=== PATIENT | male | born 1980 | race Two or more races ===

== ENCOUNTER 2018-07-26 09:57 | Emergency (ER) | payer SELFPAY ==
[~2018-07-26] VITALS: Ht 165.1 cm; Wt 99.8 kg
[2018-07-26 10:15] VITALS: BP 152/92
[2018-07-26] MEDS ORDERED: predniSONE 10 MG TABLET PO ONE (10:15)
[2018-07-26] MEDS ORDERED: IPRATRPIUM/ALBUTEROL 0.5/2.5MG 3 ML NEBU. NEB ONE (10:15)
--- NOTE | 2018-07-26 10:22 | PHYS DOC ---
Adult General Chief Complaint Chief Complaint: COUGH HPI HPI 38-year-old male presents to ER with complaints of 2-3 month history of cough. Patient states in the past 2 weeks his cough has turned productive with green phlegm. Patient denies chest pain or palpitations. Patient denies shortness of air. Patient denies fever or chills, sore throat, or earache. Pt denies swelling. Pt denies being a smoker. Patient denies other family members with similar illness. He denies recent travel. Review of Systems Review of Systems Constitutional: Denies fever or chills. Denies fatigue Eyes: Denies change in visual acuity, redness, or eye pain [] HENT: Denies nasal congestion or sore throat [] Respiratory: Denies shortness of breath. Reports prod. cough Cardiovascular: Denies CP/palpitations GI: Denies abdominal pain, nausea, vomiting, bloody stools or diarrhea [] : Denies dysuria or hematuria [] Musculoskeletal: Denies joint pain. Reports sides of back hurt with coughing episodes- denies pain during exam Integument: Denies rash, swelling or skin lesions [] Neurologic: Denies headache, focal weakness or sensory changes [] All other systems were reviewed and found to be within normal limits, except as documented in this note. Current Medications Current Medications Current Medications Medications (Trade) Dose Ordered Sig/Shauna Start Time Stop Time Status Last Admin Dose Admin Albuterol/ Ipratropium (Duoneb) 3 ml 1X ONCE 07/26/18 10:15 07/26/18 10:22 DC 07/26/18 11:08 3 ML Prednisone (Prednisone) 50 mg 1X ONCE 07/26/18 10:15 07/26/18 10:22 DC 07/26/18 10:28 50 MG Allergies Allergies Allergies Coded Allergies Type Severity Reaction Last Updated Verified Penicillins Allergy Unknown 07/26/18 Yes Physical Exam Physical Exam Constitutional: Well developed, well nourished, no acute distress, non-toxic appearance. [] HENT: Normocephalic, atraumatic, bilateral ears normal, oropharynx moist- no pharyngeal swelling/erythema, no oral exudates, nose normal. [] Eyes: Pupils equal, conjunctiva normal, no discharge. [] Neck: Normal range of motion, no tenderness, supple, no stridor. Trachea midline Cardiovascular: Heart rate regular rhythm, no murmur [] Lungs & Thorax: Bilateral breath sounds clear to auscultation- expiratory wheeze RUL. Diminished air movement throughout all lung rodrigues with less air movement in bases. Resp. equal/nonlaboredd. Speaking in full sentences Skin: Warm, dry, no erythema, no rash. [] Back: No tenderness, no CVA tenderness. [] Extremities: No tenderness, no cyanosis, no clubbing, ROM intact, no edema. [] Neurologic: Alert and oriented X 3, normal motor function, normal sensory function, no focal deficits noted. [] Psychologic: Affect normal, judgement normal, mood normal. [] Current Patient Data Vital Signs Vital Signs Date Time Temp Pulse Resp B/P (MAP) Pulse Ox O2 Delivery O2 Flow Rate FiO2 07/26/18 11:09 96 Room Air 07/26/18 10:15 98.8 73 18 152/92 (112) 98.8 EKG EKG [] Radiology/Procedures Radiology/Procedures [] Course & Med Decision Making Course & Med Decision Making Pertinent Imaging studies reviewed. (See chart for details) 1115: Patient was evaluated in the ER for complaints of ongoing cough for the past 2-3 months which has worsened over the past couple of weeks. Patient was afebrile and nontoxic in appearance. Patient was treated with dose of prednisone and given a DuoNeb treatment. On reevaluation right upper lobe expiratory wheezing has subsided. Patient has increased air movement throughout all lung rodrigues. Patient continues to have intermittent nonproductive cough but does continue to deny any chest pain. Discussed chest x-ray results with patient when no acute findings. Discussed plans for home discharge with prescriptions for prednisone and albuterol inhaler. Patient encouraged to increase fluid intake. Patient states he has appointment with his primary doctor on 08/05/18 discussed if symptoms worsen or with concerns he should call and have follow-up appointment sooner. Patient's blood pressure elevated at 152/ 92 discussed recheck with his primary care physician. Education provided on signs and symptoms to return to ER for an discharge instructions were discussed. Discussed upper respiratory illness and with no acute findings on chest x-ray and patient being afebrile will hold off on antibiotic treatment. Dragon Disclaimer Dragon Disclaimer This electronic medical record was generated, in whole or in part, using a voice recognition dictation system. Departure Departure Impression: Primary Impression: Cough Disposition: HOME, SELF-CARE Condition: STABLE Referrals: NO PCP (PCP) Patient Instructions: Cough, Adult Additional Instructions: Drink plenty of fluids. Over the counter cough medications- Delsym for example as directed on container as needed. Follow-up with primary doctor if symptoms persist or with concerns. Your blood pressure was 152/92 while in the Emergency Department you should follow-up with primary doctor for recheck of your blood pressure. Scripts Albuterol Sulfate (Proair Hfa) 8.5 Gm Hfa.aer.ad 1 PUFF INH PRN Q6HRS PRN for COUGH, #1 INHALER 0 Refills Prov: AGUILAR TORRES APRN 07/26/18 Prednisone (PREDNISONE) 50 Mg Tablet 1 TAB PO DAILY, #4 TAB 0 Refills Start on 07/27/18 Prov: AGUILAR TORRES APRN 07/26/18 AGUILAR TORRES APRN Jul 26, 2018 10:22
--- NOTE | 2018-07-26 10:29 | RAD ---
PA and lateral chest. HISTORY: Cough PA and lateral views were taken of the chest. Lungs are clear. Heart is normal in size. There is no pleural effusion. IMPRESSION: 1. No acute chest disease. Electronically signed by: Renato Dorantes MD (07/26/2018 10:26 AM) [facility]
[2018-07-26] MEDS ORDERED: PRED50TA PO (11:30)
[2018-07-26] MEDS ORDERED: ALBU2.5V8 INH (11:30)
== END 2018-07-26 11:44 | disposition home or self-care (01) ==
LOC: ER 09:57
DX: R05 Cough (principal); R06.2 Wheezing; R03.0 Elevated blood-pressure reading, without diagnosis of hypertension; Z88.0 Allergy status to penicillin
CPT/HCPCS: 71046; 94640; 99283; J7512; J7620

== ENCOUNTER 2018-09-15 06:55 | Emergency (ER) | payer SELFPAY ==
[~2018-09-15] VITALS: Ht 165.1 cm; Wt 97.5 kg
[~2018-09-15 06:55] MED LIST: ALBU2.5V8 INH; PRED50TA PO
--- NOTE | 2018-09-15 07:22 | PHYS DOC ---
Past Medical History Past Medical History: No Pertinent History, GERD Past Surgical History: No Surgical History Additional Information: Denies smoking Alcohol Use: None Drug Use: None Adult General Chief Complaint Chief Complaint: Congestion HPI HPI Patient is a 38 year old male who presents with complaining of congestion. Patient states he has had nasal congestion and sinus fullness for the last 3 days with clear discharge. Patient denies fever and chills, cough and shortness of breath, earache and sore throat. She states he has had nasal congestion and sinus problems more than one month and seen by his primary care physician and this emergency room without improvement of his condition. Review of Systems Review of Systems Constitutional: Denies fever or chills [] Eyes: Denies change in visual acuity, redness, or eye pain [] HENT: Reports nasal congestion Respiratory: Denies cough or shortness of breath [] Cardiovascular: No additional information not addressed in HPI [] GI: Denies abdominal pain, nausea, vomiting, bloody stools or diarrhea [] : Denies dysuria or hematuria [] Musculoskeletal: Denies back pain or joint pain [] Integument: Denies rash or skin lesions [] Neurologic: Denies headache, focal weakness or sensory changes [] Endocrine: Denies polyuria or polydipsia [] All other systems were reviewed and found to be within normal limits, except as documented in this note. Allergies Allergies Allergies Coded Allergies Type Severity Reaction Last Updated Verified Penicillins Allergy Unknown 07/26/18 Yes Physical Exam Physical Exam Constitutional: Well developed, well nourished, mild distress, non-toxic appearance. [] HENT: Normocephalic, atraumatic, bilateral external ears normal, oropharynx moist, no oral exudates, maxillary sinus tenderness, nasal congestion and mucosal edema and erythema .] Eyes: PERRLA, EOMI, conjunctiva normal, no discharge. [] Neck: Normal range of motion, no tenderness, supple, no stridor. [] Cardiovascular:Heart rate regular rhythm, no murmur [] Lungs & Thorax: Bilateral breath sounds clear to auscultation [] Neurologic: Alert and oriented X 3, normal motor function, normal sensory function, no focal deficits noted. [] Psychologic: Affect normal, judgement normal, mood normal. [] Current Patient Data Vital Signs Vital Signs Date Time Temp Pulse Resp B/P (MAP) Pulse Ox O2 Delivery O2 Flow Rate FiO2 09/15/18 07:05 98.9 78 18 158/99 (118) 97 Room Air 98.9 EKG EKG [] Radiology/Procedures Radiology/Procedures [facility] [address] [place] [address] IMAGING REPORT Signed PATIENT: BRISEYDA PATEL ACCOUNT: [id number] : 1980 LOCATION: ER AGE: 38 SEX: M EXAM STATUS: REG ER ORD. PHYSICIAN: VELVET FRASER MD REASON: nasal congestion for 2 months with sinus fullness PROCEDURE: CT HEAD AND MAXILLOFACIAL WO EXAM: Head and maxillofacial bone CT without contrast. HISTORY: Nasal congestion. TECHNIQUE: Computed tomographic images of the head and maxillofacial bones were obtained without contrast. *One or more of the following individualized dose reduction techniques were utilized for this examination: 1. Automated exposure control. 2. Adjustment of the mA and/or kV according to patient size. 3. Use of iterative reconstruction technique. COMPARISON: None. FINDINGS: There is no hemorrhage. There is no mass effect or midline shift. There is no hydrocephalus. The garcia-white matter differentiation pattern is intact. No suspicious calvarial lesion is seen. The mastoid air cells are clear. The temporomandibular joints are intact. There is decreased right greater than left maxillary sinus size due to hypoplasia or changes due to the sequela of chronic sinusitis/silent sinus syndrome. There is mild bilateral maxillary, mild sphenoid, and moderate to severe bilateral ethmoid sinus mucosal thickening. There is obstruction of the bilateral ostiomeatal units. There is mild rightward nasal septal deviation. The orbits are unremarkable. There is no significant stenosis involving the visualized proximal cervical spine. IMPRESSION: 1. No acute intracranial finding. 2. Paranasal sinus disease with obstruction of the ostiomeatal units. The maxillary sinuses are small in size, likely due to hypoplasia or the sequela of chronic sinusitis/silent sinus syndrome. 2. Nasal septal deviation. Electronically signed by: Izabella Lozano MD (09/15/2018 7:52 AM) [place] [id number] DICTATED and SIGNED BY: IZABELLA LOZANO MD DATE: 09/15/18 0752 Course & Med Decision Making Course & Med Decision Making Pertinent Imaging studies reviewed. (See chart for details) Evaluation of patient in ER showed 38-year-old male patient with complaining of nasal congestion for 2 days and history of the same problem previously for the last couple months. CT showed maxillary anxieties. Plan discharge patient home with 2 weeks of antibiotic and antiemetic medication and instruction to follow up with his primary care physician. Patient has Afrin spray and instructed to use as needed. Dragon Disclaimer Dragon Disclaimer This electronic medical record was generated, in whole or in part, using a voice recognition dictation system. Departure Departure Impression: Primary Impression: Acute recurrent maxillary sinusitis Disposition: HOME, SELF-CARE (at 0804) Condition: STABLE Referrals: NO PCP (PCP) Patient Instructions: Sinusitis Additional Instructions: Drink plenty of liquids Follow-up with your primary care physician in 3-5 days Return to ER if not getting better Scripts Prednisone (PREDNISONE) 50 Mg Tablet 1 TAB PO DAILY, #7 TAB Prov: VELVET FRASER MD 09/15/18 Naproxen (NAPROSYN) 500 Mg Tablet 1 TAB PO BID for pain, #30 TAB Prov: VELVET FRASER MD 09/15/18 Cephalexin (KEFLEX) 500 Mg Capsule 2 CAP PO Q12HR, #56 CAP Prov: VELVET FRASER MD 09/15/18 VELVET FRASER MD Sep 15, 2018 07:22
--- NOTE | 2018-09-15 07:55 | RAD ---
EXAM: Head and maxillofacial bone CT without contrast. HISTORY: Nasal congestion. TECHNIQUE: Computed tomographic images of the head and maxillofacial bones were obtained without contrast. *One or more of the following individualized dose reduction techniques were utilized for this examination: 1. Automated exposure control. 2. Adjustment of the mA and/or kV according to patient size. 3. Use of iterative reconstruction technique. COMPARISON: None. FINDINGS: There is no hemorrhage. There is no mass effect or midline shift. There is no hydrocephalus. The garcia-white matter differentiation pattern is intact. No suspicious calvarial lesion is seen. The mastoid air cells are clear. The temporomandibular joints are intact. There is decreased right greater than left maxillary sinus size due to hypoplasia or changes due to the sequela of chronic sinusitis/silent sinus syndrome. There is mild bilateral maxillary, mild sphenoid, and moderate to severe bilateral ethmoid sinus mucosal thickening. There is obstruction of the bilateral ostiomeatal units. There is mild rightward nasal septal deviation. The orbits are unremarkable. There is no significant stenosis involving the visualized proximal cervical spine. IMPRESSION: 1. No acute intracranial finding. 2. Paranasal sinus disease with obstruction of the ostiomeatal units. The maxillary sinuses are small in size, likely due to hypoplasia or the sequela of chronic sinusitis/silent sinus syndrome. 2. Nasal septal deviation. Electronically signed by: Izabella Owens MD (09/15/2018 7:52 AM) [place] [id number]
[2018-09-15] MEDS ORDERED: NAPR-683 PO (08:10)
[2018-09-15] MEDS ORDERED: CEPH-264 PO (08:10)
[2018-09-15] MEDS ORDERED: PRED50TA PO (08:10)
[2018-09-15 08:32] VITALS: BP 142/85
== END 2018-09-15 08:57 | disposition home or self-care (01) ==
LOC: ER 06:55
DX: J01.01 Acute recurrent maxillary sinusitis (principal); J34.2 Deviated nasal septum; K21.9 Gastro-esophageal reflux disease without esophagitis; Z88.0 Allergy status to penicillin
CPT/HCPCS: 70450; 70486; 99284-25

== ENCOUNTER 2021-05-23 19:55 | Emergency (ER) | payer SELFPAY ==
[~2021-05-23] VITALS: Ht 165.1 cm; Wt 100.0 kg
[~2021-05-23 19:55] MED LIST changes: +CEPH-264 PO; +NAPR-683 PO
[2021-05-23 21:51] LABS: BILIRUBIN,URINE NEGATIVE (NEG); CLARITY,URINE CLEAR; COLOR,URINE YELLOW; NITRITE,URINE NEGATIVE (NEG); PROTEIN,URINE NEGATIVE (NEG-TRACE); UROBILINOGEN,URINE 0.2 mg/dL (0.2 mg/dL)
[2021-05-23] MEDS ORDERED: IV NORMAL SALINE 1000ML BAG 1,000 ML IV ONE (22:00)
[2021-05-23] MEDS ORDERED: KETOROLAC 30 MG/ML VIAL. IVP ONE (22:00)
[2021-05-23 22:10] LABS: BACTERIA,URINE 0 /HPF (0-FEW); RBC,URINE 0 /HPF (0-2); WBC,URINE OCC /HPF (0-4)
--- NOTE | 2021-05-23 22:16 | PHYS DOC ---
Past Medical History Past Medical History: No Pertinent History Additional Past Medical Histor: PRE-DIABETIC, MILD HYPERTENSION, Past Surgical History: Other Additional Past Surgical Histo: UNKNOWN SURGERY AN INFANT Smoking Status: Never Smoker Alcohol Use: None Drug Use: None Adult General Chief Complaint Chief Complaint: BACK PAIN - NO INJURY HPI HPI The patient is a 40-year-old male who is otherwise healthy and takes no chronic daily medications. He is a non-smoker. He presents for evaluation of acute worsening of what he describes as chronic right upper quadrant abdominal pain with radiation to his right mid thoracic back and to his midsternal chest. He states he has had this pain intermittently for about 2 years or more but that over the past few days it has become notably more severe. Discomfort is nonexertional, nonpleuritic, not worse with food and is otherwise without clear exacerbating or ameliorating factors. Severity is only 4 out of 10 at present. No associated fevers, nausea or vomiting, upper respiratory congestio n/rhinorrhea, cough, sore throat, shortness of breath, lower abdominal pain, dysuria, hematuria, polyuria or oliguria, groin pain, changes in bowel habits. Patient states he visited what sounds like a walk-in clinic a few days ago for the same pain and after some blood tests was prescribed ciprofloxacin and Flagyl, presumably as empiric treatment for bacterial enteritis/colitis, although it is not clear per the patient's report. He states the antibiotics have not helped. Patient was diagnosed with Covid a couple of weeks ago; he states he started having symptoms on 05/13/2021, 10 days ago, and that all Covid symptoms have resolved. From a respiratory standpoint he feels much better. Review of Systems Review of Systems A 12 point review of systems was completed and was negative except where noted in HPI above. Current Medications Current Medications Current Medications Medications (Trade) Dose Ordered Sig/Shauna Start Time Stop Time Status Last Admin Dose Admin Info (CONTRAST GIVEN -- Rx MONITORING) 1 each PRN DAILY PRN 05/23/21 23:30 05/25/21 23:29 Iohexol (Omnipaque 350 Mg/ml) 100 ml 1X ONCE 05/23/21 23:30 05/23/21 23:31 DC 05/23/21 23:24 100 ML Ketorolac Tromethamine (Toradol 30mg Vial) 30 mg 1X ONCE 05/23/21 22:00 05/23/21 22:01 DC 05/23/21 22:39 30 MG Sodium Chloride 1,000 ml @ 1,000 mls/hr 1X ONCE 05/23/21 22:00 05/23/21 22:59 DC 05/23/21 22:40 1,000 MLS/HR Allergies Allergies Allergies Coded Allergies Type Severity Reaction Last Updated Verified Penicillins Allergy Intermediate 05/23/21 Yes Physical Exam Physical Exam 40-year-old male appearing nontoxic and in no acute distress. Head is normocephalic and atraumatic. Neck is supple and nontender. Oropharynx is moist. Lungs are clear to auscultation at all stations. There is a normal S1 and S2 without rubs or gallops and capillary refill is appropriate, less than 2 seconds globally. Abdomen is soft, nondistended and without pulsatile mass. There is mild focal right upper quadrant tenderness to palpation without rebound or guarding. No epigastric, left upper quadrant or lower quadrant abdominal tenderness to palpation. Skin is warm and dry without cyanosis, clubbing or edema. Psychiatrically, the patient demonstrates appropriate mood and affect and is alert. Evaluation of the extremities reveals BUEs and BLEs neurovascularly intact distally with strength out of 5, sensation intact to light touch in all nerve distributions, radial, DP and PT pulses 2+ and equal bilaterally, capillary refill less than 2 seconds, hands and feet warm and well-perfused. No dependent peripheral edema distally. No calf tenderness or swelling bilaterally. Homans test is negative bilaterally. Current Patient Data Vital Signs Vital Signs Date Time Temp Pulse Resp B/P (MAP) Pulse Ox O2 Delivery O2 Flow Rate FiO2 05/24/21 00:04 86 28 167/95 (119) 95 Room Air 05/23/21 20:06 99.3 99.3 Lab Values Laboratory Tests Test 05/23/21 20:20 05/23/21 22:36 Urine Collection Type Unknown Urine Color Yellow Urine Clarity Clear Urine pH 6.0 (<5.0-8.0) Urine Specific Ewen 1.025 (1.000-1.030) Urine Protein Negative mg/dL (NEG-TRACE) Urine Glucose (UA) Negative mg/dL (NEG) Urine Ketones (Stick) Negative mg/dL (NEG) Urine Blood Negative (NEG) Urine Nitrite Negative (NEG) Urine Bilirubin Negative (NEG) Urine Urobilinogen Dipstick 0.2 mg/dL (0.2 mg/dL) Urine Leukocyte Esterase Trace (NEG) Urine RBC 0 /HPF (0-2) Urine WBC Occ /HPF (0-4) Urine Squamous Epithelial Cells Mod /LPF Urine Bacteria 0 /HPF (0-FEW) Urine Mucus Mod /LPF White Blood Count 9.8 x10^3/uL (4.0-11.0) Red Blood Count 5.25 x10^6/uL (4.30-5.70) Hemoglobin 16.1 g/dL (13.0-17.5) Hematocrit 44.4 % (39.0-53.0) Mean Corpuscular Volume 85 fL (79-100) Mean Corpuscular Hemoglobin 31 pg (25-35) Mean Corpuscular Hemoglobin Concent 36 g/dL (31-37) Red Cell Distribution Width 13.3 % (11.5-14.5) Platelet Count 296 x10^3/uL (140-400) Neutrophils (%) (Auto) 68 % (31-73) Lymphocytes (%) (Auto) 26 % (24-48) Monocytes (%) (Auto) 5 % (0-9) Eosinophils (%) (Auto) 0 % (0-3) Basophils (%) (Auto) 0 % (0-3) Neutrophils # (Auto) 6.6 x10^3/uL (1.8-7.7) Lymphocytes # (Auto) 2.5 x10^3/uL (1.0-4.8) Monocytes # (Auto) 0.5 x10^3/uL (0.0-1.1) Eosinophils # (Auto) 0.0 x10^3/uL (0.0-0.7) Basophils # (Auto) 0.0 x10^3/uL (0.0-0.2) Prothrombin Time 12.4 SEC (11.7-14.0) Prothrombin Time INR 0.9 (0.8-1.1) Activated Partial Thromboplast Time 29 SEC (24-38) Sodium Level 138 mmol/L (136-145) Potassium Level 4.2 mmol/L (3.5-5.1) Chloride Level 105 mmol/L (98-107) Carbon Dioxide Level 26 mmol/L (21-32) Anion Gap 7 (6-14) Blood Urea Nitrogen 26 mg/dL (8-26) Creatinine 0.9 mg/dL (0.7-1.3) Estimated GFR (Cockcroft-Gault) 92.5 BUN/Creatinine Ratio 29 (6-20) H Glucose Level 120 mg/dL (70-99) H Calcium Level 8.6 mg/dL (8.5-10.1) Total Bilirubin 0.3 mg/dL (0.2-1.0) Aspartate Amino Transferase (AST) 89 U/L (15-37) H Alanine Aminotransferase (ALT) 187 U/L (16-63) H Alkaline Phosphatase 154 U/L (46-116) H Troponin I High Sensitivity 12 ng/L (4-75) MN-Wfp-F-Type Natriuretic Peptide 24 pg/mL (0-124) Total Protein 7.2 g/dL (6.4-8.2) Albumin 3.7 g/dL (3.4-5.0) Albumin/Globulin Ratio 1.1 (1.0-1.7) Lipase 126 U/L (73-393) Laboratory Tests 05/23/21 22:36 Laboratory Tests 05/23/21 22:36 EKG EKG Sinus rhythm, rate 85, no acute ST elevation or depression, IA 178, QRS 82, QTc 390, EP interpretation. Nonischemic tracing, intervals appropriate. Radiology/Procedures Radiology/Procedures EXAM: ULTRASOUND ABDOMEN LIMITED CLINICAL HISTORY: RUQ pain COMPARISON: None available. TECHNIQUE: Limited ultrasound examination of the right upper quadrant of the abdomen was performed. FINDINGS: The pancreas is mostly obscured by overlying bowel gas.. Liver: Liver measures 15.3 cm in length. Increased hepatic echogenicity relative to the right kidney consistent with hepatic steatosis.. There are no focal liver lesions. Flow seen within the portal veins. Biliary: No cholelithiasis. No wall thickening or pericholecystic fluid. There is no pain with direct transducer pressure over the gallbladder. Common bile duct measures 0.4 cm. Right Kidney: 10.9 cm in bipolar length. Normal renal cortical echotexture and thickness. No focal renal lesion, shadowing renal calculus or hydronephrosis. Visualized portions of the abdominal aorta and inferior vena cava are unremarkable. There is no free fluid in the subhepatic space. IMPRESSION: 1. No cholelithiasis. No evidence of acute cholecystitis. Caliber common bile duct. 2. Hepatic steatosis. Electronically signed by: Felton Gavin MD (05/24/2021 1:38 AM) [facility] DICTATED and SIGNED BY: FELTON GAVIN MD DATE: 05/24/21 [id number] CTA CHEST_ABDOMEN_AND PELVIS INDICATION: midsternal chest pain rad to back and RUQ, COVID+ Comparison: None. TECHNIQUE: Following the uneventful administration of a bolus of intravenous contrast, 100 mL Omnipaque 350, axial CT sections were obtained through the chest, abdomen, and pelvis. MIP images and multiplanar reconstructions were also obtained. PQRS compliance statement: One or more of the following individualized dose reduction techniques were utilized for this examination: 1. Automated exposure control 2. Adjustment of the mA and/or kV according to patient size 3. Use of iterative reconstruction technique FINDINGS: No evidence of pulmonary thromboembolic disease. No aortic dissection or aneurysm. There are a few foci of groundglass opacity in the right upper, middle, and lower lobes as well as the left lower lobe. No abnormality of the central airways. The pleural spaces are normal. The visualized thyroid is normal in size and attenuation. No axillary or supraclavicular lymphadenopathy. No mediastinal, hilar or retrocrural lymphadenopathy. The heart and pericardium are within normal limits. The liver, gallbladder, pancreas, spleen, and bilateral adrenal glands are normal. Symmetric renal enhancement. There is no focal renal mass. There is no hydronephrosis. The visualized loops of small bowel are normal. The visualized loops of large bowel are normal. There is no evidence of bowel obstruction. Appendix is normal. There is no free fluid. There is no mesenteric or retroperitoneal adenopathy. The abdominal aorta is normal in caliber. Urinary bladder is normal. No pelvic free fluid. There is no pelvic or inguinal adenopathy. The visualized bones and chest wall soft tissues are within normal limits. IMPRESSION: 1. No aortic dissection or aneurysm. No evidence of pulmonary thromboembolic disease. 2. Few scattered groundglass opacities in the right lung and left lower lobe, likely an infectious/inflammatory process. 3. No acute intra-abdominal findings. Electronically signed by: Felton Gavin MD (05/23/2021 11:39 PM) [facility] DICTATED and SIGNED BY: FELTON GAVNI MD DATE: 05/23/21 [id number] 0 Course & Med Decision Making Course & Med Decision Making 40-year-old gentleman presenting for right upper quadrant abdominal discomfort radiating to the chest and back. Symptoms occur in the setting of a Covid diagnosis about 10 days ago. Labs remarkable only for very mild transaminase elevations in the setting of hepatic steatosis. Right upper quadrant ultrasound negative. CT angiogram of the chest with patchy opacities likely related to resolving Covid infection and, potentially, explaining patient's discomfort. CT of the abdomen and pelvis entirely nonacute. No evidence of emergency condition is identified. Will discharge home with a course of diclofenac to follow-up closely with primary care in the next 2 to 4 days. Patient follows at [facility]. He understands that if he feels worse instead of better or develops other new symptoms of concern that he will need to return to the emergency department immediately for reevaluation. All questions are answered. Dragon Disclaimer Dragon Disclaimer This electronic medical record was generated, in whole or in part, using a voice recognition dictation system. Departure Departure Impression: Primary Impression: Right upper quadrant abdominal pain Additional Impression: Other chest pain Disposition: HOME / SELF CARE / HOMELESS Condition: GOOD Referrals: NO PCP (PCP) Patient Instructions: Abdominal Pain, Chest Pain (Nonspecific) Additional Instructions: Follow-up with your primary care doctor in the office in the next 2 to 4 days for a reevaluation of your symptoms and a discussion of next best steps in care. Take a 500 mg Tylenol pill every 6 hours as needed for discomfort. You may also try a 10 mg Bentyl pill every 6 hours as needed for discomfort. Drink lots of fluids and get plenty of rest. Return to the emergency department right away for worsening symptoms of any kind or with any other new symptoms of concern. Scripts Dicyclomine Hcl (DICYCLOMINE HCL) 10 Mg Capsule 10 MG PO QID for abd pain, #24 CAP Prov: ELICIA HOROWITZ MD 05/24/21 Acetaminophen (ACETAMINOPHEN) 500 Mg Tablet 1 TAB PO PRN Q6HRS PRN for pain or fever for 15 Days, #60 TAB 0 Refills Prov: ELICIA HOROWITZ MD 05/24/21 Problem Qualifiers ELICIA HOROWITZ MD May 23, 2021 22:16
[2021-05-23 22:54] LABS: BASO % 0 % (0-3); EOS % 0 % (0-3); HEMATOCRIT 44.4 % (39.0-53.0); HEMOGLOBIN 16.1 g/dL (13.0-17.5); LYMPH # 2.5 x10^3/uL (1.0-4.8); LYMPH % 26 % (24-48); MEAN CORPUSCULAR HEMOGLOBIN 31 pg (25-35); MEAN CORPUSCULAR HGB CONC 36 g/dL (31-37); MEAN CORPUSCULAR VOLUME 85 fL (79-100); MONO # 0.5 x10^3/uL (0.0-1.1); MONO % 5 % (0-9); NEUT # 6.6 x10^3/uL (1.8-7.7); NEUT % 68 % (31-73); PLATELET COUNT 296 x10^3/uL (140-400); RED BLOOD COUNT 5.25 x10^6/uL (4.30-5.70); RED CELL DISTRIBUTION WIDTH 13.3 % (11.5-14.5); WHITE BLOOD COUNT 9.8 x10^3/uL (4.0-11.0)
[2021-05-23 23:04] LABS: CALCIUM 8.6 mg/dL (8.5-10.1); CREATININE 0.9 mg/dL (0.7-1.3); GFR 92.5; POTASSIUM 4.2 mmol/L (3.5-5.1); PROTHROMBIN TIME PATIENT 12.4 SEC (11.7-14.0)
[2021-05-23 23:10] LABS: ALBUMIN 3.7 g/dL (3.4-5.0); ALBUMIN/GLOBULIN RATIO 1.1 (1.0-1.7); TOTAL BILIRUBIN 0.3 mg/dL (0.2-1.0); TOTAL PROTEIN 7.2 g/dL (6.4-8.2)
[2021-05-23] MEDS ORDERED: IOHEXOL 350 MG/ML 100 ML VIAL. IV ONE (23:30)
[2021-05-23] MEDS ORDERED: CONTRAST GIVEN. MC PRN (23:30)
--- NOTE | 2021-05-23 23:41 | RAD ---
CTA CHEST_ABDOMEN_AND PELVIS INDICATION: midsternal chest pain rad to back and RUQ, COVID+ Comparison: None. TECHNIQUE: Following the uneventful administration of a bolus of intravenous contrast, 100 mL Omnipaq ue 350, axial CT sections were obtained through the chest, abdomen, and pelvis. MIP images and multip lanar reconstructions were also obtained. PQRS compliance statement: One or more of the following individualized dose reduction techniques were utilized for this examinat ion: 1. Automated exposure control 2. Adjustment of the mA and/or kV according to patient size 3. Use of iterative reconstruction technique FINDINGS: No evidence of pulmonary thromboembolic disease. No aortic dissection or aneurysm. There are a few foci of groundglass opacity in the right upper, middle, and lower lobes as well as th e left lower lobe. No abnormality of the central airways. The pleural spaces are normal. The visualized thyroid is normal in size and attenuation. No axillary or supraclavicular lymphadenopa thy. No mediastinal, hilar or retrocrural lymphadenopathy. The heart and pericardium are within geovanny l limits. The liver, gallbladder, pancreas, spleen, and bilateral adrenal glands are normal. Symmetric renal enhancement. There is no focal renal mass. There is no hydronephrosis. The visualized loops of small bowel are normal. The visualized loops of large bowel are normal. There is no evidence of bowel obstruction. Appendix is normal. There is no free fluid. There is no mesenteric or retroperitoneal adenopathy. The abdominal aorta is normal in caliber. Urinary bladder is normal. No pelvic free fluid. There is no pelvic or inguinal adenopathy. The visualized bones and chest wall soft tissues are within normal limits. IMPRESSION: 1. No aortic dissection or aneurysm. No evidence of pulmonary thromboembolic disease. 2. Few scattered groundglass opacities in the right lung and left lower lobe, likely an infectious/in flammatory process. 3. No acute intra-abdominal findings. Electronically signed by: Shane Alfaro MD (05/23/2021 11:39 PM) [facility]
--- NOTE | 2021-05-24 01:41 | RAD ---
EXAM: ULTRASOUND ABDOMEN LIMITED CLINICAL HISTORY: RUQ pain COMPARISON: None available. TECHNIQUE: Limited ultrasound examination of the right upper quadrant of the abdomen was performed. FINDINGS: The pancreas is mostly obscured by overlying bowel gas.. Liver: Liver measures 15.3 cm in length. Increased hepatic echogenicity relative to the right kidney consistent with hepatic steatosis.. There are no focal liver lesions. Flow seen within the portal ve ins. Biliary: No cholelithiasis. No wall thickening or pericholecystic fluid. There is no pain with dire ct transducer pressure over the gallbladder. Common bile duct measures 0.4 cm. Right Kidney: 10.9 cm in bipolar length. Normal renal cortical echotexture and thickness. No focal re nal lesion, shadowing renal calculus or hydronephrosis. Visualized portions of the abdominal aorta and inferior vena cava are unremarkable. There is no free fluid in the subhepatic space. IMPRESSION: 1. No cholelithiasis. No evidence of acute cholecystitis. Caliber common bile duct. 2. Hepatic steatosis. Electronically signed by: Shane Alfaro MD (05/24/2021 1:38 AM) [facility]
[2021-05-24] MEDS ORDERED: DICY10CA3 PO (02:38)
[2021-05-24] MEDS ORDERED: ACET500T68 PO (02:38)
[2021-05-24 03:04] VITALS: BP 149/87
--- NOTE | 2021-05-24 05:54 | EKG ---
[facility] [address] [place] [address] Test Date: 2021-05-23 Test Time: 22:26:16 Pat Name: BRISEYDA PATEL Department: Room: Gender: Inventory Control Manager: : 1980 Requested By: ELICIA HOROWITZ Order Number: [id number] Reading MD: Benoit Gee Measurements Intervals Brethren Rate: 85 P: 26 DE: 178 QRS: 40 QRSD: 82 T: 25 QT: 328 QTc: 390 Interpretive Statements SINUS RHYTHM NON SPECIFIC ST-T WAVE CHANGES Electronically Signed On 05-25-2021 15:44:21 STEAM FLATTENER by Benoit Gee
== END 2021-05-24 03:30 | disposition home or self-care (01) ==
LOC: ER 19:55
DX: R10.11 Right upper quadrant pain (principal); R07.89 Other chest pain; M54.6 Pain in thoracic spine; Z88.0 Allergy status to penicillin
CPT/HCPCS: 36415; 71275; 74177; 76705; 80053; 81001; 83690; 83880; 84484; 85025; 85610; 85730; 93005; 96361; 96374; 99285; J1885; J7030; Q9967

== ENCOUNTER 2021-07-09 08:24 | Emergency (ER) | payer SELFPAY ==
[~2021-07-09] VITALS: Ht 175.3 cm; Wt 100.0 kg
[~2021-07-09 08:24] MED LIST changes: +ACET500T68 PO; +DICY10CA3 PO
--- NOTE | 2021-07-09 08:39 | PHYS DOC ---
Past Medical History Past Medical History: No Pertinent History Additional Past Medical Histor: PRE-DIABETIC, MILD HYPERTENSION, Past Surgical History: Other Additional Past Surgical Histo: UNKNOWN SURGERY AN INFANT Smoking Status: Never Smoker Alcohol Use: None Drug Use: None General Adult EDM: Chief Complaint: PAIN ON URINATION HPI: HPI: Patient is a 40 year old male who presents with right flank pain, radiating to his right groin, he reports symptoms have progressed over the last several days. He also reports urinary urgency and dysuria. He denies gross hematuria. He denies penile discharge. He denies scrotal pain or swelling. The pain is intermittent, occasionally worse with movement but often occurs spontaneously. He denies nausea, vomiting. He denies skin rash. He denies constipation or diarrhea. He denies chest pain, cough, dyspnea. He denies fevers or chills. He has not taken anything for pain today, though he reports that he had taken ibuprofen yesterday for pain, with some relief. No previous known history of renal colic or ureteral stones. No known history of urethritis, prostatitis or urinary tract infection. Review of Systems: Review of Systems: Constitutional: Denies fever or chills. [] Eyes: Denies change in visual acuity. [] HENT: Denies nasal congestion or sore throat. [] Respiratory: Denies cough or shortness of breath. [] Cardiovascular: Denies chest pain or edema. [] GI: Denies abdominal pain, nausea, vomiting, bloody stools or diarrhea. [] : Denies dysuria. [] Musculoskeletal: Denies back pain or joint pain. [] Integument: Denies rash. [] Neurologic: Denies headache, focal weakness or sensory changes. [] Endocrine: Denies polyuria or polydipsia. [] Lymphatic: Denies swollen glands. [] Psychiatric: Denies depression or anxiety. [] Heart Score: C/O Chest Pain: No Risk Factors: Risk Factors: DM, Current or recent (<one month) smoker, HTN, HLP, family history of CAD, obesity. Risk Scores: Score 0 - 3: 2.5% MACE over next 6 weeks - Discharge Home Score 4 - 6: 20.3% MACE over next 6 weeks - Admit for Clinical Observation Score 7 - 10: 72.7% MACE over next 6 weeks - Early Invasive Strategies Allergies: Allergies: Allergies Coded Allergies Type Severity Reaction Last Updated Verified Penicillins Allergy Intermediate 07/09/21 Yes Physical Exam: PE: Constitutional: Well developed, well nourished, no acute distress, non-toxic appearance. [] HENT: Normocephalic, atraumatic, Dukas membranes are moist Eyes: Conjunctiva normal, no discharge. [] Neck: Trachea midline Cardiovascular:Heart rate regular rhythm, was 2 radial and +2 posterior tibial pulses bilaterally. Lungs & Thorax: Bilateral breath sounds clear to auscultation, no rales, rhonchi or wheezes. Abdomen: Abdomen is obese, soft, nondistended, nontender to palpation, no pal pable pulsatile mass. No palpable masses organomegaly. No CVA tenderness. No flank or abdominal ecchymoses are noted. Skin: Warm, dry, no erythema, no rash. No jaundice. Back: No tenderness, no CVA tenderness. Range of motion, no deformity, no midline tenderness or step-offs. Extremities: No tenderness, no cyanosis, no clubbing, ROM intact, no edema. No calf tenderness. Neurologic: Alert and oriented X 3, normal motor function, normal sensory function, no focal deficits noted. [] Psychologic: Affect normal, judgement normal, mood normal. He is pleasant and cooperative Current Patient Data: Vital Signs: Vital Signs Date Time Temp Pulse Resp B/P (MAP) Pulse Ox O2 Delivery O2 Flow Rate FiO2 07/09/21 08:36 98.6 99 16 171/109 (129) 99 Room Air 98.6 EKG: EKG: [] Radiology/Procedures: Radiology/Procedures: IMAGING REPORT Signed PATIENT: MILLIE MONTGOMERYUNT: [id number] : 1980 LOCATION: ER AGE: 40 SEX: M EXAM STATUS: REG ER ORD. PHYSICIAN: AMA RODRIGUEZ DO REASON: right flank pain, urinary urgency and dysuria PROCEDURE: CT ABDOMEN PELVIS WO CONTRAST INDICATION: Reason: right flank pain, urinary urgency and dysuria / Spl. Instructions: / History: COMPARISON: May 2021 TECHNIQUE: Axial CT images were obtained through the abdomen and pelvis without intravenous contrast. One or more of the following individualized dose reduction techniques were utilized for this examination: 1. Automated exposure control; 2. Adjustment of the mA and/or kV according to patient size; 3. Use of iterative reconstruction technique. FINDINGS: Vascular: No abdominal aortic aneurysm. Hepatobiliary: No intrahepatic biliary duct dilation. Pancreas: No peripancreatic edema. Spleen: Spleen unremarkable. Renal/Bladder: Mild prominence of the right ureter with mild haziness to the adjacent fat. Urinary bladder is partially distended. Gastrointestinal: Mild colonic diverticulosis. The appendix does not appear inflamed. Degenerative changes the spine. IMPRESSION: * Mild prominence the right ureter with haziness to the adjacent fat. Differential considerations would include urinary tract infection. Alternative causes such as recently passed right ureter stone would be unlikely given the lack of stone on prior exam. Electronically signed by: Kelly Hernandez MD (07/09/2021 9:52 AM) [id number] DICTATED and SIGNED BY: KELLY HERNANDEZ MD DATE: 07/09/21 [id number] 0 Course & Med Decision Making: Course & Med Decision Making Pertinent Labs and Imaging studies reviewed. (See chart for details) The patient is given IV fluids and IV Toradol for pain. I ordered dose of IV Rocephin prior to discharge. Urine culture is pending. I have discussed all of the findings, differential diagnosis and plan of care with the patient. He understands that his urine culture is pending, and if there is any need to change antibiotics based on this, he should be notified. I discussed that I am recommending follow-up with outpatient urology. He will be given a prescription for 14-day course of antibiotics. He adamantly denies any penile discharge, denies any unprotected sex or new sexual partners, and CT findings do indicate more likely urinary tract infection, perhaps recently passed kidney stone. I explained that he should be notified of any need to change antibiotics based on pending urine studies, in about 48 hours. I recommend that he contact his PCP for follow-up as well. Strict return precautions are given. [place] Disclaimer: [place] Disclaimer: This electronic medical record was generated, in whole or in part, using a voice recognition dictation system. Departure Departure Impression: Primary Impression: Urinary tract infection Additional Impression: Right flank pain Disposition: HOME / SELF CARE / HOMELESS Condition: STABLE Referrals: UNKNOWN PCP NAME (PCP) PEPE SUAZO MD Patient Instructions: Urinary Tract Infection Additional Instructions: Take the full course of antibiotics. Use the pain medicine as needed/as directed. Make sure you stay hydrated, drink plenty of fluids. Your urine is being cultured, so we are going the urine in the lab to see what type of bacteria you have in your urine. If there is any indication that your infection will not be covered by the antibiotic you are prescribed, you should be notified in about 48 hours. Also, you are being referred to outpatient urology for your urinary tract infection. Please contact them for follow-up. Please also contact your primary care [place] [facility]. Return to the ER for fever 100.4 or higher, severe back pain, severe abdominal pain, uncontrolled vomiting, dehydration or for any other concerns. Scripts Hydrocodone Bit/Acetaminophen (HYDROCODONE-APAP 5-325 ) 1 Tab Tablet 1 TAB PO PRN Q6HRS PRN for PAIN, #20 TAB 0 Refills Prov: AMA RODRIGUEZ DO 07/09/21 Cefdinir (CEFDINIR) 300 Mg Capsule 1 CAP PO BID for 14 Days, #28 CAP Prov: AMA RODRIGUEZ DO 07/09/21 AMA RODRIGUEZ DO Jul 09, 2021 08:39
[2021-07-09] MEDS: IV NORMAL SALINE 1000ML BAG 1,000 ML IV ONE (09:00)
[2021-07-09] MEDS: KETOROLAC 30 MG/ML VIAL. IVP ONE (09:00)
[2021-07-09 09:13] LABS: BASO % 0 % (0-3); EOS # 0.1 x10^3/uL (0.0-0.7); EOS % 1 % (0-3); HEMATOCRIT 42.7 % (39.0-53.0); HEMOGLOBIN 14.2 g/dL (13.0-17.5); LYMPH # 1.7 x10^3/uL (1.0-4.8); LYMPH % 15 % (24-48); MEAN CORPUSCULAR HEMOGLOBIN 29 pg (25-35); MEAN CORPUSCULAR HGB CONC 33 g/dL (31-37); MEAN CORPUSCULAR VOLUME 87 fL (79-100); MONO # 0.6 x10^3/uL (0.0-1.1); MONO % 6 % (0-9); NEUT # 8.5 x10^3/uL (1.8-7.7); NEUT % 78 % (31-73); PLATELET COUNT 287 x10^3/uL (140-400); RED BLOOD COUNT 4.93 x10^6/uL (4.30-5.70); RED CELL DISTRIBUTION WIDTH 13.8 % (11.5-14.5); WHITE BLOOD COUNT 10.9 x10^3/uL (4.0-11.0)
[2021-07-09 09:14] LABS: BILIRUBIN,URINE NEGATIVE (NEG); CLARITY,URINE CLEAR; COLOR,URINE YELLOW; NITRITE,URINE NEGATIVE (NEG); PROTEIN,URINE 30 mg/dL (NEG-TRACE); UROBILINOGEN,URINE 0.2 mg/dL (0.2 mg/dL)
[2021-07-09 09:26] LABS: CALCIUM 9.1 mg/dL (8.5-10.1); CREATININE 0.9 mg/dL (0.7-1.3); GFR 92.5; POTASSIUM 3.7 mmol/L (3.5-5.1)
[2021-07-09 09:32] LABS: ALBUMIN 3.2 g/dL (3.4-5.0); ALBUMIN/GLOBULIN RATIO 0.7 (1.0-1.7); TOTAL BILIRUBIN 0.3 mg/dL (0.2-1.0)
[2021-07-09 09:34] LABS: BACTERIA,URINE FEW /HPF (0-FEW); WBC,URINE 20-40 /HPF (0-4)
--- NOTE | 2021-07-09 09:54 | RAD ---
INDICATION: Reason: right flank pain, urinary urgency and dysuria / Spl. Instructions: / History: COMPARISON: May 2021 TECHNIQUE: Axial CT images were obtained through the abdomen and pelvis without intravenous contrast. One or more of the following individualized dose reduction techniques were utilized for this examinat ion: 1. Automated exposure control; 2. Adjustment of the mA and/or kV according to patient size; 3 . Use of iterative reconstruction technique. FINDINGS: Vascular: No abdominal aortic aneurysm. Hepatobiliary: No intrahepatic biliary duct dilation. Pancreas: No peripancreatic edema. Spleen: Spleen unremarkable. Renal/Bladder: Mild prominence of the right ureter with mild haziness to the adjacent fat. Urinary bl adder is partially distended. Gastrointestinal: Mild colonic diverticulosis. The appendix does not appear inflamed. Degenerative changes the spine. IMPRESSION: * Mild prominence the right ureter with haziness to the adjacent fat. Differential considerations w ould include urinary tract infection. Alternative causes such as recently passed right ureter stone w ould be unlikely given the lack of stone on prior exam. Electronically signed by: Kermit Sebastian MD (07/09/2021 9:52 AM) [id number]
[2021-07-09] MEDS: cefTRIAXone IV Push 1 GM VIAL. IVP ONE (10:15)
[2021-07-09] MEDS ORDERED: CEFD300C PO (11:14)
[2021-07-09] MEDS ORDERED: HYDR-2761 PO (11:14)
[2021-07-09 11:38] VITALS: BP 135/87
== END 2021-07-09 11:39 | disposition home or self-care (01) ==
LOC: ER 08:24
DX: N39.0 Urinary tract infection, site not specified (principal); Z88.0 Allergy status to penicillin
CPT/HCPCS: 36415; 74176; 80053; 81001; 83690; 85025; 87077; 87086; 87186; 96361; 96374; 96375; 99284; J0696; J1885; J7030